=== PATIENT | female | born 1980 | race Caucasian/White ===

== ENCOUNTER 2024-10-19 09:34 | Day surgery (SDC) | payer OTHER, SELFPAY ==
--- NOTE | 2024-10-19 | PATH_ITS ---
[facility] Accession Number: [id number] No. of containers..01 Tissue . 01 Material submitted: . colon - SIGMOID COLON POLYP . 01 Diagnosis: SIGMOID COLON POLYP: Hyperplastic polyp. STO 10/20/20241814 Local . 01 Electronically signed: . Francisco Hernandez MD, Pathologist NPI- [id number] . 01 Gross description: . SIGMOID COLON POLYP: Received in formalin is 1 fragment(s) of bear, soft tissue measuring 0.5 x 0.4 x 0.4 cm submitted entirely in 1 cassette(s) /LIVE 10/20/20241814 Local . 01 Pathologist provided ICD-10: K63.5 . 01 CPT . 383095 Specimen Comment: A courtesy copy of this report has been sent to [facility] Pathology Performed at: [address] [facility] [id number] MD Francisco Hernandez MD Phone: [phone]
[2024-10-19 10:02] VITALS: BP 121/76; PULSE 70; RESP 16; TEMP 36.7; O2SAT 100
[2024-10-19] MEDS: LACTATED RINGERS 1,000 ML 42 ML IV (10:46)
--- NOTE | 2024-10-19 10:50 | P.HP_ITS ---
History of Present Illness History of Present Illness Date Patient Seen: 10/19/24 Time Patient Seen: 10:50 Chief complaint: SDC Narrative: 44-year-old white female presents for initial screening colonoscopy. No changes in bowels. [facility], [facility] Medical History (Updated 10/19/24 @ 10:51 by Osbaldo Benosn MD) Colon cancer screening (10/19/24) Social History Smoking Status: Current every day smoker alcohol intake: current Meds Home Medications and Allergies Home Medications Medication Instructions Recorded Confirmed Type sodium,potassium,mag sulfates 17.5 See Rx Instructions PO .COMPLEX 09/14/24 Rx gram-3.13 gram-1.6 gram oral soln #354 mL (Suprep Bowel Prep Kit) doxepin 10 mg/mL oral concentrate mg 10/19/24 History hydroxyzine HCl 25 mg tablet 25 mg PO Q8H PRN anxiety 10/19/24 10/19/24 History Allergies Allergy/AdvReac Type Severity Reaction Status Date / Time nickel AdvReac Mild Verified 10/19/24 10:01 Review of Systems Review of Systems ROS: Yes All systems reviewed with the patient and are negative except as otherwise documented Exam Vital Signs (past 8 hours): - 10/19/24 10:02 Temperature 98.1 F Pulse Rate 70 Respiratory Rate 16 Blood Pressure 121/76 Pulse Oximetry 100 Oxygen Delivery Method Room Air Oxygen Delivery Method Room Air Narrative Exam Narrative: Gen: NAD, sitting comfortably in bed, appears well HEENT: Sclera are anicteric, head is normocephalic and atraumatic, trachea is midline. CV: RRR, no JVD Resp: clear to auscultation bilaterally, equal chest wall movement bilaterally Abd: soft, nontender, normoactive bowel sounds Ext: no edema, full range of motion Neuro: Cranial nerves II-XII grossly intact, no focal deficits Skin: No erythema or ecchymosis Assessment & Plan Assessment and plan (1) Colon cancer screening: Status: Acute Assessment & Plan narrative: Patient presents for colonoscopy Risks, benefits, alternatives to colonoscopy explained, including but not limited to bowel perforation or other serious complication requiring surgery at less than 1 in 5000 colonoscopies, abdominal pain, cramping or bleeding and less than 1% of colonoscopies, and the chances that we find a diagnosis that would require further intervention of about 2%. Patient agrees to proceed. Time-Based Coding :: [TOTAL MINUTES] spent with patient and on the chart (including review of chart, obtaining history, exam, reviewing outside data, placing orders, documenting exam and treatment plan, and counseling patient) on [DATE]. [employer] Document charge(s): No
--- NOTE | 2024-10-19 11:15 | PM.OP.COLON ---
Operative Date/Time/Diagnoses Date of procedure: 10/19/24 Time of procedure: 11:16 Pre-op diagnosis: Initial screening colonoscopy Post-op diagnosis: other (Sigmoid polyp, pancolonic diverticulosis) Procedure & Clinicians Study performed: Colonoscopy with cold snare polypectomy of sigmoid polyp Same procedure as scheduled: Yes Indications: Colon screening Surgeon: Osbaldo Benson Procedure Notes SCOAP/Timeout: Performed Procedure in detail: Time-out was performed. Mac was induced. Patient was placed in left lateral decubitus position. The perineum was inspected without any gross abnormality. Lubricated pediatric colonoscope was inserted and advanced to the cecum. The terminal ileum was intubated. The colonoscope was withdrawn slowly inspecting the circumference of the colon. A subcentimeter polyp was noted in the sigmoid colon at the rectosigmoid junction. Cold snare polypectomy was performed and it was removed completely and retrieved. She had pancolonic diverticulosis with large diverticulum throughout the entire colon. Very small polyps may have been missed, prep quality was adequate. Retroflexed view of the rectum showed small, non prolapsed nonbleeding internal hemorrhoids. The scope was withdrawn the patient was taken to PACU in good condition. Scope withdrawal time: 6 Sedation minutes: 12 Findings: divertiulosis and polyp(s) Specimen(s): other (1. Sigmoid colon polyp) Complications: none Post-procedure Recommendations: Colonoscopy in 5 years (Next colonoscopy in 7 years) Follow up: as needed Disposition: PACU
[2024-10-19 11:17] VITALS: BP 94/49; RESP 24; TEMP 36.2; O2SAT 96
[2024-10-19 11:22] VITALS: BP 101/58; PULSE 64; RESP 28; O2SAT 98
[2024-10-19 11:27] VITALS: BP 100/62; PULSE 60; RESP 13; TEMP 36.2; O2SAT 100
[2024-10-19 11:38] VITALS: BP 112/65; PULSE 60; RESP 14; O2SAT 100
== END 2024-10-19 11:48 | disposition home or self-care (01) ==
PROVIDERS: PCP Registered Nurse; Referring Provider Surgery; Visit Provider Surgery
PROC: 0DJD8ZZ Inspection of Lower Intestinal Tract, Via Natural or Artificial Opening Endoscopic (ICD-10-PCS; CPT 45378; principal; 2024-10-19 10:45)
DX: Z12.11 Encounter for screening for malignant neoplasm of colon (principal); K57.30 Diverticulosis of large intestine without perforation or abscess without bleeding; F17.210 Nicotine dependence, cigarettes, uncomplicated; K64.8 Other hemorrhoids; K63.5 Polyp of colon
CPT/HCPCS: 45385; 45378; J2704

== ENCOUNTER → 2024-10-27 15:14 | Outpatient (CLI) | payer OTHER, SELFPAY ==
--- NOTE | 2024-10-27 15:15 | DI.MG.S_ITS ---
BILATERAL DIGITAL SCREENING MAMMOGRAM 3D/2D WITH CAD: 10/27/2024 CLINICAL: Routine screening. Comparison is made to exams dated: 05/17/2022 mammogram - [facility] and 03/23/2019 mammogram - [facility]. The breasts are heterogeneously dense, which may obscure small masses (category c / 51-75% glandular tissue). Current study was also evaluated with a Computer Aided Detection (CAD) system. No significant masses, calcifications, or other findings are seen in either breast. There has been no significant interval change. IMPRESSION: NEGATIVE There is no mammographic evidence of malignancy. A 1 year screening mammogram is recommended. Based on the Tyrer Cuzick model (a risk assessment model) the patient's lifetime risk is 13.0% and her 10 year risk is 2.4%. According to the ACR, ACS, and NCCN guidelines, an annual breast MRI exam along with mammogram is recommended if the patient's lifetime risk is 20% or greater. This exam was interpreted at Station ID: [id number]. NOTE: For mammograms, a report in lay terms will be sent to the patient. Approximately 15% of breast malignancies will not be visualized mammographically. In the management of a palpable breast mass, a negative mammogram must not discourage biopsy of a clinically suspicious lesion. Electronically Signed By: Zakia Lay M.D., Ph.D. denny/drew:10/28/2024 22:45:02 letter sent: Normal Exam ACR BI-RADS Category 1: Negative
== END ==
PROVIDERS: PCP Registered Nurse; Referring Provider Registered Nurse; Visit Provider Registered Nurse
DX: Z12.31 Encounter for screening mammogram for malignant neoplasm of breast (principal); R92.333 Mammographic heterogeneous density, bilateral breasts
CPT/HCPCS: 77063; 77067